=== PATIENT | female | born 1955 | race Caucasian/White ===

== ENCOUNTER 2019-03-22 10:17 | Inpatient (IN) | payer MEDICARE ==
[~2019-03-22] VITALS: Ht 182.9 cm; Wt 79.2 kg
[~2019-03-22 10:17] MED LIST: BUPIVACAINE/PF 0.25% ONE
[2019-03-22 10:39] VITALS: BP 165/75
[2019-03-22] MEDS ORDERED: DIGO250T12 PO (10:50)
[2019-03-22] MEDS ORDERED: ASPI-496 PO (10:50)
[2019-03-22] MEDS ORDERED: CARV6.252 PO (10:50)
[2019-03-22] MEDS ORDERED: GABA300C10 PO (10:54)
[2019-03-22] MEDS ORDERED: FUROSEMIDE (10:54)
[2019-03-22] MEDS ORDERED: LACTATED RINGERS 1,000 ML IV SCH (10:54)
[2019-03-22] MEDS ORDERED: BACLOFEN (10:54)
[2019-03-22] MEDS ORDERED: LOVA10TA PO (10:54)
[2019-03-22] MEDS ORDERED: DULO20CA45 PO (10:54)
[2019-03-22] MEDS ORDERED: ACETAMINOPHEN 500 MG TABLET PO ONE (11:00)
[2019-03-22] MEDS ORDERED: PLEASE ENTER HEIGHT AND WEIGHT MC SCH (11:00)
[2019-03-22] MEDS ORDERED: SCOPOLAMINE PATCH, 1.5MG PATCH.TD72 TD ONE (11:00)
[2019-03-22] MEDS ORDERED: PLEASE ENTER ALLERGIES MC SCH (11:00)
[2019-03-22] MEDS ORDERED: GABAPENTIN 300 MG CAPSULE PO ONE (11:00)
[2019-03-22 11:48] LABS: BASOPHILS # (AUTO) 0.06 x10^3/uL (0-0.1); BASOPHILS % (AUTO) 1 % (0-1); EOSINOPHILS # (AUTO) 0.01 x10^3/uL (0-0.4); EOSINOPHILS % (AUTO) 0 % (1-7); LYMPHOCYTES # (AUTO) 0.84 x10^3/uL (1-3.4); LYMPHOCYTES % (AUTO) 13 % (22-44); MD NO; MEAN CORPUSCULAR HEMOGLOBIN 32.2 pg (27.0-34.8); MEAN CORPUSCULAR HGB CONC 32.4 g/dL (32.4-35.8); MEAN CORPUSCULAR VOLUME 99.6 fL (80-100); MEAN PLATELET VOLUME 7.6 fL (7.4-10.4); MONOCYTES % (AUTO) 5 % (2-9); NEUTROPHILS # (AUTO) 5.02 x10^3/uL (1.8-6.8); NEUTROPHILS % (AUTO) 81 % (42-75); PLATELET COUNT 258 x10^3/uL (130-400); RED BLOOD COUNT 3.88 x10^6/uL (3.82-5.3); RED CELL DISTRIBUTION WIDTH 15.8 % (9.6-15.2)
[2019-03-22 11:59] LABS: INTERNATIONAL NORMALIZED RATIO 0.98 (0.93-1.1); PROTHROMBIN TIME 10.3 Seconds (9.6-11.5)
[2019-03-22 12:00] LABS: ALBUMIN 4.4 g/dL (3.4-5.0); ANION GAP 12 mmol/L (5-15); CALCIUM 9.3 mg/dL (8.5-10.1); CHLORIDE 107 mmol/L (98-107)
[2019-03-22 12:29] LABS: ALANINE AMINOTRANSFERASE 25 U/L (12-78); ALKALINE PHOSPHATASE 95 U/L (45-117); BILIRUBIN,TOTAL 0.6 mg/dL (0.2-1.0); CREATININE 0.86 mg/dL (0.55-1.02); TOTAL PROTEIN 7.4 g/dL (6.4-8.2)
[2019-03-22] MEDS ORDERED: DIAZEPAM 5 MG TABLET PO ONE (15:00)
[2019-03-22] MEDS ORDERED: MIDAZOLAM 1 MG/ML, 2ML ONE (16:55)
[2019-03-22] MEDS ORDERED: PROPOFOL 10 MG/ML, 20ML ONE (16:57)
[2019-03-22] MEDS ORDERED: FENTANYL PF 250 MCG/5ML ONE (16:57)
[2019-03-22] MEDS ORDERED: LIDOCAINE-MPF 2% ,5ML ONE (16:59)
[2019-03-22] MEDS ORDERED: ROCURONIUM 10MG/ML,5ML ONE ×3 (18:09→19:35)
[2019-03-22] MEDS ORDERED: CEFAZOLIN 1,000 MG ONE ×2 (18:10)
[2019-03-22] MEDS ORDERED: DEXAMETHASONE 4 MG/ML, 1ML ONE ×2 (18:10)
[2019-03-22] MEDS ORDERED: ONDANSETRON 2MG/ML, 2ML ONE (18:11)
[2019-03-22] MEDS ORDERED: NEOSTIGMINE 1 MG/ML, 10ML ONE (18:20)
[2019-03-22] MEDS ORDERED: ESMOLOL 100 MG/10 ML ONE (18:20)
[2019-03-22] MEDS ORDERED: METOCLOPRAMIDE 5 MG/ML, 2ML ONE (18:20)
[2019-03-22] MEDS ORDERED: GLYCOPYRROLATE 0.2MG/1ML, 5ML ONE (18:20)
[2019-03-22] MEDS ORDERED: MEPERIDINE/PF 25MG/0.5ML IVPush PRN (18:30)
[2019-03-22] MEDS ORDERED: OXYcodone 5 MG/5 ML ORAL.SOL UDC PO PRN (18:30)
[2019-03-22] MEDS ORDERED: LORazepam 2 MG/ML, 1ML IVPush PRN (18:30)
[2019-03-22] MEDS ORDERED: MEPERIDINE/PF 50 MG/ML ONE (19:51)
[2019-03-22] MEDS ORDERED: LORazepam 2 MG/ML, 1ML ONE (20:29)
[2019-03-22] MEDS ORDERED: FENTANYL PF 100 MCG/2ML ONE (20:29)
[2019-03-22] MEDS ORDERED: HYDROmorphone 2 MG/ML, 1ML ONE (20:29)
[2019-03-22] MEDS: FENTANYL PF 100 MCG/2ML IV PRN ×2 (20:30→20:38)
[2019-03-22] MEDS: HYDROmorphone 2 MG/ML, 1ML IVPush PRN ×2 (20:34→21:27)
[2019-03-22] MEDS ORDERED: OXYcodone 5 MG/5 ML ORAL.SOL UDC ONE (20:38)
[2019-03-22] MEDS: D5%-0.45NACL+KCL 20MEQ 1,000 ML IV SCH (23:07)
[2019-03-23 01:00] VITALS: BP 112/70
[2019-03-23 05:32] LABS: BASOPHILS % (AUTO) 0 % (0-1); EOSINOPHILS % (AUTO) 0 % (1-7); LYMPHOCYTES # (AUTO) 0.38 x10^3/uL (1-3.4); LYMPHOCYTES % (AUTO) 6 % (22-44); MD NO; MEAN CORPUSCULAR HEMOGLOBIN 33.8 pg (27.0-34.8); MEAN CORPUSCULAR HGB CONC 33.6 g/dL (32.4-35.8); MEAN CORPUSCULAR VOLUME 100.6 fL (80-100); MEAN PLATELET VOLUME 7.8 fL (7.4-10.4); MONOCYTES # (AUTO) 0.48 x10^3/uL (0.2-0.8); MONOCYTES % (AUTO) 7 % (2-9); NEUTROPHILS # (AUTO) 6.09 x10^3/uL (1.8-6.8); NEUTROPHILS % (AUTO) 88 % (42-75); PLATELET COUNT 257 x10^3/uL (130-400); RED BLOOD COUNT 3.47 x10^6/uL (3.82-5.3); RED CELL DISTRIBUTION WIDTH 16.5 % (9.6-15.2)
[2019-03-23 05:43] LABS: ANION GAP 6 mmol/L (5-15); CALCIUM 8.5 mg/dL (8.5-10.1); CHLORIDE 109 mmol/L (98-107); CREATININE 0.79 mg/dL (0.55-1.02)
[2019-03-23] MEDS: D5%-0.45NACL+KCL 20MEQ 1,000 ML IV SCH ×3 (06:37→22:35)
[2019-03-23] MEDS: KETOROLAC 30 MG/1 ML IVPush PRN ×3 (06:46→19:59)
[2019-03-23 07:01] VITALS: BP 114/70
[2019-03-23 13:20] VITALS: BP 118/76
[2019-03-23] MEDS: NICOTINE 14MG/24 HR PATCH.TD24 TD SCH (16:29)
[2019-03-23 19:36] VITALS: BP 133/77
[2019-03-23] MEDS: LOVASTATIN 10 MG TABLET PO SCH (19:48)
[2019-03-23] MEDS: GABAPENTIN 300 MG CAPSULE PO SCH (19:48)
[2019-03-23] MEDS: DULOXETINE 20 MG CAPSULE.DR PO SCH (19:48)
[2019-03-23] MEDS ORDERED: DIGOXIN 0.25 MG TABLET PO ONE (23:00)
[2019-03-24 02:39] VITALS: BP 107/58
[2019-03-24] MEDS: KETOROLAC 30 MG/1 ML IVPush PRN ×2 (04:57→13:46)
[2019-03-24] MEDS: D5%-0.45NACL+KCL 20MEQ 1,000 ML IV SCH ×2 (06:36→19:19)
[2019-03-24 07:15] VITALS: BP 117/62
[2019-03-24] MEDS: GABAPENTIN 300 MG CAPSULE PO SCH ×2 (09:01→21:08)
[2019-03-24] MEDS: CARVEDILOL 6.25 MG TABLET PO SCH (09:01)
[2019-03-24] MEDS: DIGOXIN 0.25 MG TABLET PO SCH (09:01)
[2019-03-24] MEDS: LORazepam 1MG TABLET PO PRN ×2 (09:02→21:08)
[2019-03-24] MEDS: DULOXETINE 20 MG CAPSULE.DR PO SCH ×2 (09:02→21:08)
[2019-03-24] MEDS: ASPIRIN 81 MG TABLET EC PO SCH (09:02)
[2019-03-24 12:49] VITALS: BP 121/75
[2019-03-24] MEDS ORDERED: OXYcodone/APAP 5/325MG TABLET PO PRN (13:00)
[2019-03-24] MEDS: NICOTINE 14MG/24 HR PATCH.TD24 TD SCH (18:20)
[2019-03-24 20:34] VITALS: BP 158/84
[2019-03-24] MEDS: LOVASTATIN 10 MG TABLET PO SCH (21:08)
[2019-03-25 01:08] VITALS: BP 155/84
[2019-03-25 04:10] VITALS: BP 142/83
[2019-03-25 06:55] LABS: MICROSCOPIC INDICATED
[2019-03-25 06:56] LABS: CULTURE INDICATED? NO
[2019-03-25 07:20] LABS: ANION GAP 4 mmol/L (5-15); CALCIUM 8.6 mg/dL (8.5-10.1); CHLORIDE 109 mmol/L (98-107); CREATININE 0.66 mg/dL (0.55-1.02)
[2019-03-25 07:23] LABS: BASOPHILS # (AUTO) 0.02 x10^3/uL (0-0.1); BASOPHILS % (AUTO) 0 % (0-1); EOSINOPHILS # (AUTO) 0.01 x10^3/uL (0-0.4); EOSINOPHILS % (AUTO) 0 % (1-7); LYMPHOCYTES # (AUTO) 0.75 x10^3/uL (1-3.4); LYMPHOCYTES % (AUTO) 12 % (22-44); MD NO; MEAN CORPUSCULAR HEMOGLOBIN 32.4 pg (27.0-34.8); MEAN CORPUSCULAR HGB CONC 32.1 g/dL (32.4-35.8); MEAN PLATELET VOLUME 7.4 fL (7.4-10.4); MONOCYTES # (AUTO) 0.62 x10^3/uL (0.2-0.8); MONOCYTES % (AUTO) 10 % (2-9); NEUTROPHILS # (AUTO) 5.11 x10^3/uL (1.8-6.8); NEUTROPHILS % (AUTO) 79 % (42-75); PLATELET COUNT 199 x10^3/uL (130-400); RED CELL DISTRIBUTION WIDTH 16.5 % (9.6-15.2)
[2019-03-25 07:52] VITALS: BP 164/94
[2019-03-25] MEDS: ASPIRIN 81 MG TABLET EC PO SCH (09:21)
[2019-03-25] MEDS: DULOXETINE 20 MG CAPSULE.DR PO SCH ×2 (09:21→19:56)
[2019-03-25] MEDS: CARVEDILOL 6.25 MG TABLET PO SCH (09:21)
[2019-03-25] MEDS: GABAPENTIN 300 MG CAPSULE PO SCH ×2 (09:21→22:20)
[2019-03-25] MEDS: DIGOXIN 0.25 MG TABLET PO SCH (09:21)
[2019-03-25] MEDS: LORazepam 1MG TABLET PO PRN ×2 (09:24→22:35)
[2019-03-25] MEDS: D5%-0.45NACL+KCL 20MEQ 1,000 ML IV SCH ×2 (09:24→16:31)
[2019-03-25] MEDS: KETOROLAC 30 MG/1 ML IVPush PRN (11:28)
[2019-03-25] MEDS ORDERED: MORPHINE SULFATE 4 MG/ML, 1ML IVPush PRN (12:00)
[2019-03-25 14:40] VITALS: BP 172/97
[2019-03-25] MEDS ORDERED: LORazepam 2 MG/ML, 1ML IV PRN (15:00)
[2019-03-25] MEDS: LORazepam 2 MG/ML, 1ML IV PRN ×4 (15:21→20:26)
[2019-03-25] MEDS: NICOTINE 14MG/24 HR PATCH.TD24 TD SCH (16:21)
[2019-03-25] MEDS ORDERED: LORazepam 1MG TABLET PO PRN ×2 (20:00)
[2019-03-25 20:34] VITALS: BP 165/97
[2019-03-25] MEDS: LOVASTATIN 10 MG TABLET PO SCH (22:20)
[2019-03-26 00:52] VITALS: BP 140/77
[2019-03-26] MEDS: D5%-0.45NACL+KCL 20MEQ 1,000 ML IV SCH ×2 (01:00→11:29)
[2019-03-26 04:57] VITALS: BP 152/94
[2019-03-26] MEDS: LORazepam 2 MG/ML, 1ML IV PRN ×8 (05:09→21:58)
[2019-03-26 08:32] VITALS: BP 176/100
[2019-03-26] MEDS: DULOXETINE 20 MG CAPSULE.DR PO SCH ×2 (09:00→19:35)
[2019-03-26] MEDS: GABAPENTIN 300 MG CAPSULE PO SCH (09:00)
[2019-03-26] MEDS: ASPIRIN 81 MG TABLET EC PO SCH (09:00)
[2019-03-26] MEDS: CARVEDILOL 6.25 MG TABLET PO SCH ×2 (09:00→19:36)
[2019-03-26] MEDS: DIGOXIN 0.25 MG TABLET PO SCH (09:00)
[2019-03-26] MEDS: KETOROLAC 30 MG/1 ML IVPush PRN ×2 (11:25→17:50)
[2019-03-26 12:22] LABS: BASOPHILS # (AUTO) 0.05 x10^3/uL (0-0.1); BASOPHILS % (AUTO) 1 % (0-1); EOSINOPHILS # (AUTO) 0.09 x10^3/uL (0-0.4); EOSINOPHILS % (AUTO) 2 % (1-7); LYMPHOCYTES # (AUTO) 0.76 x10^3/uL (1-3.4); LYMPHOCYTES % (AUTO) 16 % (22-44); MD NO; MEAN CORPUSCULAR HEMOGLOBIN 33.2 pg (27.0-34.8); MEAN CORPUSCULAR HGB CONC 33.4 g/dL (32.4-35.8); MEAN CORPUSCULAR VOLUME 99.6 fL (80-100); MEAN PLATELET VOLUME 7.4 fL (7.4-10.4); MONOCYTES # (AUTO) 0.48 x10^3/uL (0.2-0.8); MONOCYTES % (AUTO) 10 % (2-9); NEUTROPHILS % (AUTO) 71 % (42-75); PLATELET COUNT 209 x10^3/uL (130-400); RED BLOOD COUNT 3.48 x10^6/uL (3.82-5.3); RED CELL DISTRIBUTION WIDTH 15.9 % (9.6-15.2)
[2019-03-26 12:45] LABS: ALBUMIN 3.7 g/dL (3.4-5.0); ANION GAP 10 mmol/L (5-15); CALCIUM 8.7 mg/dL (8.5-10.1); CHLORIDE 106 mmol/L (98-107)
[2019-03-26 12:48] LABS: ALANINE AMINOTRANSFERASE 49 U/L (12-78); ALKALINE PHOSPHATASE 73 U/L (45-117); CREATININE 0.66 mg/dL (0.55-1.02)
[2019-03-26 13:14] VITALS: BP 175/87
[2019-03-26] MEDS: ENOXAPARIN 40 MG/0.4 ML SQ SCH (14:05)
[2019-03-26] MEDS: SODIUM CHLORIDE 0.9% 1,000 ML IV SCH (14:05)
[2019-03-26] MEDS: NICOTINE 14MG/24 HR PATCH.TD24 TD SCH (16:51)
[2019-03-26 16:58] LABS: T4 (THYROXINE) 12.3 mcg/dL (4.8-13.9)
[2019-03-26 17:08] LABS: THYROID STIMULATING HORMONE 1.77 mIU/L (0.358-3.740)
[2019-03-26 18:18] VITALS: BP 145/90
[2019-03-26 18:43] VITALS: BP 150/97
[2019-03-26] MEDS ORDERED: DIGOXIN 0.25 MG TABLET PO ONE (20:00)
[2019-03-26] MEDS: LORazepam 1MG TABLET PO PRN (23:55)
[2019-03-27] VITALS: BP 155/104
[2019-03-27] MEDS: GABAPENTIN 300 MG CAPSULE PO SCH ×3 (00:51→21:27)
[2019-03-27] MEDS: LOVASTATIN 10 MG TABLET PO SCH ×2 (00:51→21:27)
[2019-03-27 04:23] LABS: BASOPHILS # (AUTO) 0.07 x10^3/uL (0-0.1); BASOPHILS % (AUTO) 1 % (0-1); EOSINOPHILS % (AUTO) 4 % (1-7); LYMPHOCYTES # (AUTO) 0.91 x10^3/uL (1-3.4); LYMPHOCYTES % (AUTO) 17 % (22-44); MD NO; MEAN CORPUSCULAR HEMOGLOBIN 34.1 pg (27.0-34.8); MEAN CORPUSCULAR HGB CONC 33.9 g/dL (32.4-35.8); MEAN CORPUSCULAR VOLUME 100.6 fL (80-100); MEAN PLATELET VOLUME 7.5 fL (7.4-10.4); MONOCYTES # (AUTO) 0.64 x10^3/uL (0.2-0.8); MONOCYTES % (AUTO) 12 % (2-9); NEUTROPHILS # (AUTO) 3.38 x10^3/uL (1.8-6.8); NEUTROPHILS % (AUTO) 65 % (42-75); PLATELET COUNT 247 x10^3/uL (130-400); RED BLOOD COUNT 3.46 x10^6/uL (3.82-5.3); RED CELL DISTRIBUTION WIDTH 16.2 % (9.6-15.2)
[2019-03-27 04:33] LABS: ANION GAP 9 mmol/L (5-15); CALCIUM 8.6 mg/dL (8.5-10.1); CHLORIDE 107 mmol/L (98-107)
[2019-03-27 04:34] LABS: CREATININE 0.64 mg/dL (0.55-1.02)
[2019-03-27] MEDS: LORazepam 1MG TABLET PO PRN ×4 (04:41→22:32)
[2019-03-27 04:56] VITALS: BP 149/88
[2019-03-27] MEDS: SODIUM CHLORIDE 0.9% 1,000 ML IV SCH ×2 (06:23→22:34)
[2019-03-27 07:00] VITALS: BP 167/94
[2019-03-27] MEDS ORDERED: OMNIPAQUE 350 MG/ML, 100ML BOTTLE ONE (08:51)
[2019-03-27] MEDS: KETOROLAC 30 MG/1 ML IVPush PRN ×2 (09:45→17:26)
[2019-03-27] MEDS: DIGOXIN 0.25 MG TABLET PO SCH (09:45)
[2019-03-27] MEDS: DULOXETINE 20 MG CAPSULE.DR PO SCH ×2 (09:45→21:27)
[2019-03-27] MEDS: CARVEDILOL 6.25 MG TABLET PO SCH ×2 (09:46→21:28)
[2019-03-27] MEDS: ASPIRIN 81 MG TABLET EC PO SCH (09:46)
[2019-03-27] MEDS: MAGNESIUM HYDROXIDE 8%, 30ML UDC PO SCH ×3 (11:32→22:32)
[2019-03-27 13:20] VITALS: BP 133/86
[2019-03-27] MEDS: ENOXAPARIN 40 MG/0.4 ML SQ SCH (13:37)
[2019-03-27] MEDS: NICOTINE 14MG/24 HR PATCH.TD24 TD SCH (17:25)
[2019-03-27 19:55] VITALS: BP 137/92
[2019-03-28 00:32] VITALS: BP 142/81
[2019-03-28] MEDS: LORazepam 0.5MG TABLET PO PRN ×2 (04:37→08:18)
[2019-03-28] MEDS: MAGNESIUM HYDROXIDE 8%, 30ML UDC PO SCH ×2 (04:38→07:51)
[2019-03-28 07:34] VITALS: BP 143/68
[2019-03-28] MEDS: DULOXETINE 20 MG CAPSULE.DR PO SCH ×2 (08:17→19:41)
[2019-03-28] MEDS: CARVEDILOL 6.25 MG TABLET PO SCH ×2 (08:17→19:46)
[2019-03-28] MEDS: ASPIRIN 81 MG TABLET EC PO SCH (08:18)
[2019-03-28] MEDS: GABAPENTIN 300 MG CAPSULE PO SCH ×2 (08:18→19:41)
[2019-03-28] MEDS: DIGOXIN 0.25 MG TABLET PO SCH (08:18)
[2019-03-28] MEDS ORDERED: BISACODYL 10 MG SUPP PR SCH (09:00)
[2019-03-28 13:07] VITALS: BP 136/84
[2019-03-28] MEDS: SODIUM CHLORIDE 0.9% 1,000 ML IV SCH (14:42)
[2019-03-28] MEDS: ENOXAPARIN 40 MG/0.4 ML SQ SCH (14:42)
[2019-03-28] MEDS: NICOTINE 14MG/24 HR PATCH.TD24 TD SCH (14:44)
[2019-03-28] MEDS ORDERED: BISACODYL 10 MG SUPP PR PRN (15:00)
[2019-03-28] MEDS: LOVASTATIN 10 MG TABLET PO SCH (19:41)
[2019-03-28 19:55] VITALS: BP 147/87
[2019-03-29 03:03] VITALS: BP 108/64
[2019-03-29 08:08] VITALS: BP 128/76
[2019-03-29] MEDS: FOLIC ACID 1 MG TABLET PO SCH (09:48)
[2019-03-29] MEDS: THIAMINE 100MG TABLET PO SCH (09:48)
[2019-03-29] MEDS: DULOXETINE 30 MG CAPSULE.DR PO SCH ×3 (09:48→20:12)
[2019-03-29] MEDS: ASPIRIN 81 MG TABLET EC PO SCH (09:48)
[2019-03-29] MEDS: DIGOXIN 0.25 MG TABLET PO SCH (09:48)
[2019-03-29] MEDS: CARVEDILOL 6.25 MG TABLET PO SCH ×2 (09:48→20:12)
[2019-03-29] MEDS: GABAPENTIN 300 MG CAPSULE PO SCH ×2 (09:48→20:11)
[2019-03-29] MEDS: SODIUM CHLORIDE 0.9% 1,000 ML IV SCH (09:49)
[2019-03-29 13:19] VITALS: BP 126/79
[2019-03-29] MEDS: LORazepam 1MG TABLET PO PRN ×2 (14:19→20:11)
[2019-03-29] MEDS: ENOXAPARIN 40 MG/0.4 ML SQ SCH (14:19)
[2019-03-29] MEDS: NICOTINE 14MG/24 HR PATCH.TD24 TD SCH (16:23)
[2019-03-29 18:31] VITALS: BP 145/82
[2019-03-29] MEDS: LOVASTATIN 10 MG TABLET PO SCH (20:11)
[2019-03-30] MEDS: SODIUM CHLORIDE 0.9% 1,000 ML IV SCH ×2 (01:12→16:54)
[2019-03-30 02:00] VITALS: BP 133/78
[2019-03-30 04:41] LABS: BASOPHILS # (AUTO) 0.04 x10^3/uL (0-0.1); BASOPHILS % (AUTO) 1 % (0-1); EOSINOPHILS # (AUTO) 0.13 x10^3/uL (0-0.4); EOSINOPHILS % (AUTO) 3 % (1-7); LYMPHOCYTES # (AUTO) 1.05 x10^3/uL (1-3.4); LYMPHOCYTES % (AUTO) 21 % (22-44); MD NO; MEAN CORPUSCULAR HGB CONC 33.7 g/dL (32.4-35.8); MEAN CORPUSCULAR VOLUME 100.8 fL (80-100); MEAN PLATELET VOLUME 7.3 fL (7.4-10.4); MONOCYTES # (AUTO) 0.56 x10^3/uL (0.2-0.8); MONOCYTES % (AUTO) 11 % (2-9); NEUTROPHILS # (AUTO) 3.32 x10^3/uL (1.8-6.8); NEUTROPHILS % (AUTO) 65 % (42-75); PLATELET COUNT 302 x10^3/uL (130-400); RED BLOOD COUNT 3.11 x10^6/uL (3.82-5.3); RED CELL DISTRIBUTION WIDTH 16.2 % (9.6-15.2)
[2019-03-30 04:47] LABS: ANION GAP 3 mmol/L (5-15); CALCIUM 8.2 mg/dL (8.5-10.1); CHLORIDE 111 mmol/L (98-107)
[2019-03-30 04:50] LABS: ALANINE AMINOTRANSFERASE 21 U/L (12-78); ALKALINE PHOSPHATASE 62 U/L (45-117); BILIRUBIN,TOTAL 0.5 mg/dL (0.2-1.0); CREATININE 0.65 mg/dL (0.55-1.02); TOTAL PROTEIN 5.9 g/dL (6.4-8.2)
[2019-03-30 07:51] VITALS: BP 145/80
[2019-03-30] MEDS: ASPIRIN 81 MG TABLET EC PO SCH (07:58)
[2019-03-30] MEDS: THIAMINE 100MG TABLET PO SCH (07:58)
[2019-03-30] MEDS: FOLIC ACID 1 MG TABLET PO SCH (07:58)
[2019-03-30] MEDS: DIGOXIN 0.25 MG TABLET PO SCH (07:58)
[2019-03-30] MEDS: GABAPENTIN 300 MG CAPSULE PO SCH ×2 (07:58→19:52)
[2019-03-30] MEDS: CARVEDILOL 6.25 MG TABLET PO SCH ×2 (07:58→19:53)
[2019-03-30] MEDS: LORazepam 0.5MG TABLET PO PRN (07:58)
[2019-03-30] MEDS: DULOXETINE 30 MG CAPSULE.DR PO SCH ×3 (07:58→19:52)
[2019-03-30] MEDS ORDERED: ACETAMINOPHEN 325 MG TABLET ONE (12:52)
[2019-03-30] MEDS: ACETAMINOPHEN 325 MG TABLET PO PRN (12:55)
[2019-03-30 13:08] VITALS: BP 158/89
[2019-03-30] MEDS: ENOXAPARIN 40 MG/0.4 ML SQ SCH (14:28)
[2019-03-30] MEDS: NICOTINE 14MG/24 HR PATCH.TD24 TD SCH (16:53)
[2019-03-30 18:52] VITALS: BP 168/90
[2019-03-30] MEDS: LOVASTATIN 10 MG TABLET PO SCH (19:52)
[2019-03-31 01:31] VITALS: BP 159/80
[2019-03-31 04:45] LABS: BASOPHILS # (AUTO) 0.04 x10^3/uL (0-0.1); BASOPHILS % (AUTO) 1 % (0-1); EOSINOPHILS # (AUTO) 0.11 x10^3/uL (0-0.4); EOSINOPHILS % (AUTO) 2 % (1-7); LYMPHOCYTES # (AUTO) 1.16 x10^3/uL (1-3.4); LYMPHOCYTES % (AUTO) 22 % (22-44); MD NO; MEAN CORPUSCULAR HGB CONC 33.9 g/dL (32.4-35.8); MEAN CORPUSCULAR VOLUME 100.3 fL (80-100); MEAN PLATELET VOLUME 7.4 fL (7.4-10.4); MONOCYTES # (AUTO) 0.54 x10^3/uL (0.2-0.8); MONOCYTES % (AUTO) 10 % (2-9); NEUTROPHILS # (AUTO) 3.37 x10^3/uL (1.8-6.8); NEUTROPHILS % (AUTO) 65 % (42-75); PLATELET COUNT 311 x10^3/uL (130-400); RED BLOOD COUNT 3.04 x10^6/uL (3.82-5.3); RED CELL DISTRIBUTION WIDTH 15.9 % (9.6-15.2)
[2019-03-31 04:57] LABS: ANION GAP 7 mmol/L (5-15); CALCIUM 8.3 mg/dL (8.5-10.1); CHLORIDE 112 mmol/L (98-107); CREATININE 0.63 mg/dL (0.55-1.02)
[2019-03-31 07:44] VITALS: BP 165/82
[2019-03-31] MEDS: ASPIRIN 81 MG TABLET EC PO SCH (08:02)
[2019-03-31] MEDS: CARVEDILOL 6.25 MG TABLET PO SCH ×2 (08:02→19:33)
[2019-03-31] MEDS: DULOXETINE 30 MG CAPSULE.DR PO SCH ×3 (08:02→22:49)
[2019-03-31] MEDS: GABAPENTIN 300 MG CAPSULE PO SCH ×2 (08:03→19:33)
[2019-03-31] MEDS: DIGOXIN 0.25 MG TABLET PO SCH (08:03)
[2019-03-31] MEDS: FOLIC ACID 1 MG TABLET PO SCH (08:03)
[2019-03-31] MEDS: ACETAMINOPHEN 325 MG TABLET PO PRN ×3 (08:03→19:33)
[2019-03-31] MEDS: THIAMINE 100MG TABLET PO SCH (08:03)
[2019-03-31] MEDS: LOPERAMIDE 2 MG CAPSULE PO PRN (12:50)
[2019-03-31 12:54] VITALS: BP 157/83
[2019-03-31] MEDS: SODIUM CHLORIDE 0.9% 1,000 ML IV SCH (15:15)
[2019-03-31] MEDS: LORazepam 0.5MG TABLET PO PRN ×2 (15:41→19:33)
[2019-03-31] MEDS: ENOXAPARIN 40 MG/0.4 ML SQ SCH (15:43)
[2019-03-31] MEDS: NICOTINE 14MG/24 HR PATCH.TD24 TD SCH (15:53)
[2019-03-31] MEDS ORDERED: LOPERAMIDE 2 MG CAPSULE PO PRN (18:00)
[2019-03-31 18:41] VITALS: BP 165/92
[2019-03-31 19:25] VITALS: BP 170/85
[2019-03-31] MEDS: LOVASTATIN 10 MG TABLET PO SCH (19:33)
[2019-03-31] MEDS: LORazepam 1MG TABLET PO PRN (22:49)
[2019-04-01 01:59] VITALS: BP 158/82
[2019-04-01] MEDS: SODIUM CHLORIDE 0.9% 1,000 ML IV SCH ×2 (02:43→23:00)
[2019-04-01] MEDS: ACETAMINOPHEN 325 MG TABLET PO PRN ×3 (05:24→19:20)
[2019-04-01] MEDS: LORazepam 0.5MG TABLET PO PRN ×3 (05:24→12:40)
[2019-04-01 07:54] VITALS: BP 157/88
[2019-04-01] MEDS: DULOXETINE 30 MG CAPSULE.DR PO SCH ×3 (08:28→19:20)
[2019-04-01] MEDS: THIAMINE 100MG TABLET PO SCH (08:28)
[2019-04-01] MEDS: GABAPENTIN 300 MG CAPSULE PO SCH ×2 (08:28→19:20)
[2019-04-01] MEDS: FOLIC ACID 1 MG TABLET PO SCH (08:28)
[2019-04-01] MEDS: CARVEDILOL 6.25 MG TABLET PO SCH ×2 (08:28→19:20)
[2019-04-01] MEDS: ASPIRIN 81 MG TABLET EC PO SCH (08:28)
[2019-04-01] MEDS: DIGOXIN 0.25 MG TABLET PO SCH (08:29)
[2019-04-01] MEDS: LOPERAMIDE 2 MG CAPSULE PO PRN (12:40)
[2019-04-01] MEDS: ENOXAPARIN 40 MG/0.4 ML SQ SCH (14:05)
[2019-04-01 14:35] VITALS: BP 127/83
[2019-04-01] MEDS: NICOTINE 14MG/24 HR PATCH.TD24 TD SCH (17:01)
[2019-04-01 18:49] VITALS: BP 135/82
[2019-04-01] MEDS: LOVASTATIN 10 MG TABLET PO SCH (19:20)
[2019-04-01] MEDS: LORazepam 1MG TABLET PO PRN (19:20)
[2019-04-02] MEDS: LORazepam 0.5MG TABLET PO PRN (00:51)
[2019-04-02 01:59] VITALS: BP 128/81
[2019-04-02 08:50] VITALS: BP 129/73
[2019-04-02] MEDS: ACETAMINOPHEN 325 MG TABLET PO PRN (08:55)
[2019-04-02] MEDS: ASPIRIN 81 MG TABLET EC PO SCH (08:55)
[2019-04-02] MEDS: FOLIC ACID 1 MG TABLET PO SCH (08:58)
[2019-04-02] MEDS: GABAPENTIN 300 MG CAPSULE PO SCH (08:58)
[2019-04-02] MEDS: CARVEDILOL 6.25 MG TABLET PO SCH (08:58)
[2019-04-02] MEDS: DIGOXIN 0.25 MG TABLET PO SCH (08:58)
[2019-04-02] MEDS: DULOXETINE 30 MG CAPSULE.DR PO SCH (08:58)
[2019-04-02] MEDS: THIAMINE 100MG TABLET PO SCH (08:58)
[2019-04-02] MEDS ORDERED: OXYC-302 PO (09:43)
[2019-04-02] MEDS ORDERED: ONDA4TAB7 PO (09:45)
[2019-04-02] MEDS: LORazepam 1MG TABLET PO PRN (10:21)
== END 2019-04-02 10:38 | DRG 742 ==
LOC: OUT 10:17 → 3NW 20:43
PROVIDERS: ADMIT Specialist; ATTEND Specialist
PROC: 0UT70ZZ Resection of Bilateral Fallopian Tubes, Open Approach (ICD-10-PCS; 2019-03-22)
PROC: 0UT90ZZ Resection of Uterus, Open Approach (ICD-10-PCS; 2019-03-22)
PROC: 0DTU0ZZ Resection of Omentum, Open Approach (ICD-10-PCS; 2019-03-22)
PROC: 0DTJ0ZZ Resection of Appendix, Open Approach (ICD-10-PCS; 2019-03-22)
PROC: 0DBW0ZZ Excision of Peritoneum, Open Approach (ICD-10-PCS; 2019-03-22)
PROC: 0UT20ZZ Resection of Bilateral Ovaries, Open Approach (ICD-10-PCS; principal; 2019-03-22 14:30)
PROC: 0T9B70Z Drainage of Bladder with Drainage Device, Via Natural or Artificial Opening (ICD-10-PCS; 2019-03-25)
DX: N83.209 Unspecified ovarian cyst, unspecified side (principal); J96.01 Acute respiratory failure with hypoxia; F10.239 Alcohol dependence with withdrawal, unspecified; F32.9 Major depressive disorder, single episode, unspecified; F41.9 Anxiety disorder, unspecified; I10 Essential (primary) hypertension; G89.29 Other chronic pain; I48.91 Unspecified atrial fibrillation; K59.00 Constipation, unspecified; Z53.31 Laparoscopic surgical procedure converted to open procedure; Z72.0 Tobacco use
CPT/HCPCS: 36415; 71045; 71275; 74018; 80048; 80053; 80162; 81001; 83735; 84100; 84436; 84443; 85025; 85610; 85730; 86304; 86850; 86900; 86923; 88302; 88305; 88307; 88331; 88341; 88342; 93005; G0378; J0690; J1100; J1170; J1650; J1885; J2175; J2250; J2270; J2405; J2704; J2710; J3010; J3490; Q9967; C1765; J2060; J2765; J3480; J7030; J7120